=== PATIENT | female | born 1950 | race Caucasian/White ===

== ENCOUNTER 2016-12-19 17:25 | Emergency (ER) | payer MEDICARE ==
[~2016-12-19] VITALS: Ht 154.9 cm; Wt 91.0 kg
[2016-12-19] MEDS ORDERED: ASPI81TA85 PO (17:49)
--- NOTE | 2016-12-19 19:00 | REPUSA ---
CLINICAL HISTORY: Pain. COMMENTS: Real time sonography with duplex doppler of the left lower extremity was performed with attention to the major deep venous structures. Evaluation reveals the left common femoral, superficial femoral and popliteal veins to be completely compressible without intraluminal thrombus. There is normal spontaneous phasic flow and augmentation. The greater saphenous/common femoral vein junction is patent. 5.3 x 6.3 x 2.9 cm Redd's cyst is noted. IMPRESSION: No evidence of DVT in left lower extremity. Redd's cyst. Thank you for your kind referral of this patient.
[2016-12-19] MEDS ORDERED: ACETAMINOPHEN TAB 650MG DOSE (2X325MG) PO ONE (19:15)
[2016-12-19 19:27] VITALS: BP 154/77
== END 2016-12-19 19:29 | disposition home or self-care (01) ==
LOC: M ED 17:25
DX: M71.22 Synovial cyst of popliteal space [Baker], left knee (principal); M79.605 Pain in left leg; E11.9 Type 2 diabetes mellitus without complications; I10 Essential (primary) hypertension; E03.9 Hypothyroidism, unspecified; Z90.79 Acquired absence of other genital organ(s); Z86.79 Personal history of other diseases of the circulatory system; Z85.9 Personal history of malignant neoplasm, unspecified